=== PATIENT | female | born 1975 | race African-American/Black ===

== ENCOUNTER 2016-09-21 01:44 | Emergency (ER) | payer BC, OTHER ==
[2016-09-21 01:41] LABS: INFLUENZA A NEG (NEG); INFLUENZA B NEG (NEG)
[~2016-09-21 01:44] MED LIST: FLEXERIL10 MG PO; NO MEDICATIONS; PEPCID PO; PREDNISONE PO; PRENATAL1 TA1 PO; VOLTAREN75 MG PO; ZOFRAN ODT4 MG PO
== END 2016-09-21 02:19 | disposition home or self-care (01) ==
LOC: SED 01:44
PROVIDERS: Physician Assistant
DX: J02.9 Acute pharyngitis, unspecified (principal)
CPT/HCPCS: 87651; 87804; 99283